=== PATIENT | male | born 1975 | race Caucasian/White ===

== ENCOUNTER → 2024-01-08 13:29 | Outpatient (REF) | payer OTHER, SELFPAY | LOC: RAD 13:29 | PROVIDERS: ATTENDING PHYSICIAN Orthopaedic Surgery; FAMILY PHYSICIAN Family Medicine | DX: M25.511 Pain in right shoulder (principal) | CPT/HCPCS: 23350; 73040; 73222 ==

== ENCOUNTER → 2024-02-29 08:37 | Outpatient (REF) | payer OTHER, SELFPAY | LOC: HWRAD 08:37 | PROVIDERS: ATTENDING PHYSICIAN Internal Medicine Gastroenterology; FAMILY PHYSICIAN Family Medicine | DX: R10.9 Unspecified abdominal pain (principal); R94.5 Abnormal results of liver function studies | CPT/HCPCS: 76700 ==

== ENCOUNTER → 2024-04-18 09:31 | Outpatient (REF) | payer OTHER, SELFPAY | LOC: HWRCS 09:31 | PROVIDERS: ATTENDING PHYSICIAN Internal Medicine; FAMILY PHYSICIAN Family Medicine | DX: R94.31 Abnormal electrocardiogram [ECG] [EKG] (principal); R06.09 Other forms of dyspnea | CPT/HCPCS: 93306 ==

== ENCOUNTER → 2024-04-22 13:01 | Outpatient (REF) | payer OTHER, SELFPAY | LOC: RCS 13:01 | PROVIDERS: ATTENDING PHYSICIAN Internal Medicine; FAMILY PHYSICIAN Family Medicine | DX: R94.31 Abnormal electrocardiogram [ECG] [EKG] (principal); R06.09 Other forms of dyspnea | CPT/HCPCS: 93017; 93350 ==

== ENCOUNTER → 2024-05-06 08:40 | Outpatient (REF) | payer OTHER, SELFPAY | LOC: MRI 3T 08:40 | PROVIDERS: ATTENDING PHYSICIAN Urology; FAMILY PHYSICIAN Family Medicine | DX: N42.89 Other specified disorders of prostate (principal) | CPT/HCPCS: 72197; A9575 ==

== ENCOUNTER → 2025-03-21 08:05 | Outpatient (REF) | payer OTHER, SELFPAY | LOC: RAD 08:05 | PROVIDERS: ATTENDING PHYSICIAN Family Medicine | DX: S60.212A Contusion of left wrist, initial encounter (principal); R22.32 Localized swelling, mass and lump, left upper limb; M25.432 Effusion, left wrist | CPT/HCPCS: 73100 ==